=== PATIENT | male | born 1955 | race Caucasian/White ===

== ENCOUNTER 2022-01-24 00:24 | Day surgery (SDC) | payer OTHER, SELFPAY ==
[2022-01-09 13:11] VITALS: BMI 21.5
[2022-01-24 10:20] VITALS: BP 157/94; PULSE 100; RESP 18; TEMP 36.2; O2SAT 99
[2022-01-24] MEDS: LACTATED RINGERS 1,000 ML 150 ML IV CONT (10:28)
--- NOTE | 2022-01-24 10:32 | P.PNAN_ITS ---
Anes - Initial Pre Proc Eval Procedure: Operation Date: 01/24/22 11:30 Proposed Procedures p Screening Colonoscopy - Souleymane Hogan MD Date/Time: 01/24/22 10:32 Surgeon: Souleymane Hoagn MD Pre Op Diagnosis: neoplasm screening Patient Data Age: 66 Gender: M Height: 1.83 m Weight: 68 kg Last Vital Signs Temp 36.2 C L 01/24/22 10:20 Pulse 100 01/24/22 10:20 Resp 18 01/24/22 10:20 BP 157/94 H 01/24/22 10:20 Pulse Ox 99 01/24/22 10:20 Allergies Allergy/AdvReac Type Severity Reaction Status Date / Time No Known Allergies Allergy Verified 01/24/22 10:16 Home Medications Medication Instructions Recorded Confirmed Type Belsomra 20 mg PO HS PRN 08/03/19 01/09/22 History aspirin 81 mg PO DAILY 08/03/19 01/09/22 History tadalafil 5 mg PO DAILY 08/03/19 01/09/22 History lisinopril 20 mg PO DAILY 01/09/22 01/09/22 History simvastatin 40 mg PO DAILY 01/09/22 01/09/22 History Patient hx anesthesia problems: none Family hx anesthesia problems: none Results Review: All pre-operative results and documents have been reviewed as part of the pre-operative evaluation. [facility] Past Medical History Medical History CAD (coronary artery disease) Hyperlipidemia Hypertension Surgical History Surgical History History of ventral hernia repair Epigastric hernia repiar 2017 Family History Family History Mother Family history of malignant neoplasm of breast in first degree relative Father Acute myocardial infarction Family history of emphysema Other Cerebrovascular accident Diabetes mellitus Hypertension Social History Social History Smoking status: Former smoker Tobacco type: cigarettes Smoking end date: 09/22/84 Alcohol intake: current Alcohol use details: 3-4X yearly Substance use: current Substance use type: marijuana Last use: Daily Living arrangements: with family Gender identity (if verbalized by the patient): Male Spiritual care concerns: No Anes - Eval Final PreProcedure Day of Procedure 01/24/22 10:32 Patient weight: normal Heart: regular rate and rhythm Lungs: decreased breath sounds Airway: Mallampati scale class II Neurological: alert and oriented Last oral intake: >/= 8 hours ASA classification: III Emergent: no Anesthetic plan: proceed Anesthesia type and monitoring: general GIVS and standard monitoring Results Review: All pre-operative results and documents have been reviewed as part of the pre-operative evaluation. Informed Consent: The patient's anesthetic plan and its attendant risks and benefits were discussed with the patient/family/POA. Questions were solicited and answers provided to the satisfaction of the patient/family/POA.
--- NOTE | 2022-01-24 10:34 | WPDGICN ---
Assessment and Plan Assessment and plan (1) Encounter for screening colonoscopy: Code(s): Z12.11 - Encounter for screening for malignant neoplasm of colon Status: Acute Assessment and Plan: Patient presents for screening colonoscopy. It has been more than 10 years since last exam. Further recommendations will be given after endoscopy. GI Consult Note Consult date/time: 01/24/22 10:34 HPI: Ahmet Reynolds is a 66 year old male Presents for screening colonoscopy. Patient's current weight appetite and bowel movements are normal. He denies abdominal pain. He has had no bleeding. Family history is noncontributory. Patient presents today for neoplasia screening colonoscopy. Review of Systems Review of Systems: All systems reviewed & are unremarkable except as noted in HPI and below PMFSH Past Medical History Medical History CAD (coronary artery disease) Hyperlipidemia Hypertension Surgical History Surgical History History of ventral hernia repair Epigastric hernia [facility] 2017 Family History Family History Mother Family history of malignant neoplasm of breast in first degree relative Father Acute myocardial infarction Family history of emphysema Other Cerebrovascular accident Diabetes mellitus Hypertension Social History Social History Smoking status: Former smoker Tobacco type: cigarettes Smoking end date: 09/22/84 Alcohol intake: current Alcohol use details: 3-4X yearly Substance use: current Substance use type: marijuana Last use: Daily Living arrangements: with family Gender identity (if verbalized by the patient): Male Spiritual care concerns: No Meds Home Medications and Allergies Home Medications Medication Instructions Recorded Confirmed Type Belsomra 20 mg PO HS PRN 08/03/19 01/09/22 History aspirin 81 mg PO DAILY 08/03/19 01/09/22 History tadalafil 5 mg PO DAILY 08/03/19 01/09/22 History lisinopril 20 mg PO DAILY 01/09/22 01/09/22 History simvastatin 40 mg PO DAILY 01/09/22 01/09/22 History Allergies Allergy/AdvReac Type Severity Reaction Status Date / Time No Known Allergies Allergy Verified 01/24/22 10:16 Vital Signs Vital Signs - 24 hr 01/24/22 10:20 Temperature 97.2 F L Pulse Rate 100 Respiratory Rate 18 Blood Pressure 157/94 H Pulse Oximetry 99 Exam Narrative: Physical exam reveals patient to be alert. Vital signs stable. HEENT exam is unremarkable. Patient is anicteric. Lungs are clear to auscultation and percussion. Heart is without murmur or extra sounds. Abdominal exam bowel sounds are present soft nontender with no hepatosplenomegaly. Digital external rectal exam is normal.
[2022-01-24 10:58] VITALS: BP 90/63; PULSE 83; RESP 23; O2SAT 97
[2022-01-24 11:08] VITALS: BP 85/57; PULSE 77; RESP 20; O2SAT 97
[2022-01-24 11:18] VITALS: BP 127/86; PULSE 76; RESP 21; O2SAT 99
== END 2022-01-24 11:31 | disposition home or self-care (01) ==
PROVIDERS: PCP Family Medicine; Visit Provider Internal Medicine Gastroenterology
PROC: 0DJD8ZZ Inspection of Lower Intestinal Tract, Via Natural or Artificial Opening Endoscopic (ICD-10-PCS; CPT 45378; principal; 2022-01-24 11:30)
DX: Z12.11 Encounter for screening for malignant neoplasm of colon (principal); K55.20 Angiodysplasia of colon without hemorrhage; K57.30 Diverticulosis of large intestine without perforation or abscess without bleeding; K64.8 Other hemorrhoids; I25.10 Atherosclerotic heart disease of native coronary artery without angina pectoris; I10 Essential (primary) hypertension; E78.5 Hyperlipidemia, unspecified; Z87.891 Personal history of nicotine dependence
CPT/HCPCS: 45388; J2704; J7120

== ENCOUNTER 2023-06-14 10:45 | Outpatient (CLI) | payer OTHER, SELFPAY ==
--- NOTE | 2023-06-14 | ECG_ITS ---
Measurements Intervals [place] Rate: 67 P: -12 PA: 152 QRS: -3 QRSD: 96 T: 5 QT: 365 QTc: 388 Interpretive Statements SINUS RHYTHM NORMAL ECG COMPARED TO ECG 08/05/2019 14:54:39 NO SIGNIFICANT CHANGES Electronically Signed On 06-14-2023 14:40:26 CDT by Connor Collins D.O.
[2023-06-14 12:21] LABS: Basophils Absolute Auto 0.1 K/mm3 (0.0-0.1); Basophils Percent Auto 0.8 % (0.2-1.2); Eosinophils Absolute Auto 0.1 K/mm3 (0-0.3); Eosinophils Percent Auto 1.1 % (0-4.4); Hematocrit 44.9 % (42.0-52.0); Hemoglobin 14.8 g/dL (14.0-18.0); Immature Granulocyte Absolute 0.02 K/mm3 (0.00-0.031); Immature Granulocyte Percent A 0.3 % (0-0.5); Lymphocytes Absolute Auto 1.22 K/mm3 (0.9-3.2); Mean Corpuscular Hemoglobin 31.1 pg (26-34); Mean Corpuscular Volume 94.3 fl (80-100); Mean Platelet Volume 9.6 fl (7.4-10.4); Monocytes Absolute Auto 0.5 K/mm3 (0.1-0.6); Monocytes Percent Auto 8.5 % (2.6-8.5); Neutrophils Absolute Auto 4.2 K/mm3 (1.3-6.7); Neutrophils Percent Auto 69.3 % (45.5-73.1); Platelet Count Result 191 k/mm3 (150-375); Red Blood Count 4.76 M/mm3 (4.6-6.20); Red Cell Distribution Width 12.1 % (11.5-14.5); White Blood Count 6.1 K/mm3 (4.5-10.0)
[2023-06-14 13:21] LABS: Alanine Aminotransferase 26 U/L (6-50); Albumin Level 4.4 g/dL (3.5-5.1); Alkaline Phosphatase 68 U/L (38-126); Anion Gap 5 mmol/L (8-16); Aspartate Amino Transferase 24 U/L (17-59); Bilirubin,Total 1.2 mg/dL (0.2-1.3); Blood Urea Nitrogen 20 mg/dL (9-20); Calcium 9.1 mg/dL (8.4-10.2); Carbon Dioxide 27 mmol/L (22-30); Chloride 105 mmol/L (98-107); Cholesterol 106 mg/dL (0-200); Estimated Glomerular Filt Rate > 60; Glucose 97 mg/dL (65-110); HDL Direct 47 mg/dL; Potassium 4.8 mmol/L (3.4-5.0); Sodium 137 mmol/L (137-145); Triglycerides 45 mg/dL (<150)
[2023-06-14 13:31] LABS: LDL Cholesterol Direct 56 mg/dL
[2023-06-17 17:49] LABS: Prostate Specific Antigen 1.7 ng/mL (< OR = 4.0)
== END 2023-06-14 10:46 | disposition home or self-care (01) ==
PROVIDERS: PCP Family Medicine; Visit Provider Family Medicine
DX: I10 Essential (primary) hypertension (principal); Z12.5 Encounter for screening for malignant neoplasm of prostate
CPT/HCPCS: 36415; 80053; 80061; 84153; 85025; 93005; G0103